=== PATIENT | female | born 1965 | race Caucasian/White ===

== ENCOUNTER 2017-11-04 09:21 | Emergency (ER) | payer MEDICAID ==
[~2017-11-04] VITALS: Ht 162.5 cm; Wt 72.1 kg
[~2017-11-04 09:21] MED LIST: EFFEXOR XR75 M1 PO; NAPROSYN500 MG PO; NEURONTIN400 MG PO; TRAZODONE100 MG PO
[2017-11-04] MEDS ORDERED: MOBIC7.5 MG PO (09:26)
[2017-11-04] MEDS ORDERED: CYCLOBENZAPRINE10 MG PO (11:26)
[2017-11-04 11:36] VITALS: BP 140/83
== END 2017-11-04 11:31 | disposition home or self-care (01) ==
LOC: ED 09:21
DX: S39.012A Strain of muscle, fascia and tendon of lower back, initial encounter (principal); Z88.0 Allergy status to penicillin; Z88.2 Allergy status to sulfonamides; Z88.8 Allergy status to other drugs, medicaments and biological substances; Z88.1 Allergy status to other antibiotic agents; Z79.899 Other long term (current) drug therapy; Z79.1 Long term (current) use of non-steroidal anti-inflammatories (NSAID); Z90.710 Acquired absence of both cervix and uterus; X58.XXXA Exposure to other specified factors, initial encounter; Y93.89 Activity, other specified; Y92.89 Other specified places as the place of occurrence of the external cause; Y99.8 Other external cause status